=== PATIENT | female | born 1955 | race Caucasian/White ===

== ENCOUNTER → 2022-03-04 | Outpatient (CLI) | payer OTHER ==
[~2022-03-04] VITALS: Ht 160 cm; Wt 55.8 kg
[~2022-03-04] MED LIST: BEVESPI AEROS10.7 GM INH; FERROUS SULFAT325 M2 PO; FOSAMAX70 MG PO; FUROSEMIDE20 MG PO; GABAPENTIN400 MG PO; MELOXICAM15 MG PO; SINGULAIR10 MG PO; TRAMADOL HCL50 MG PO; WELLBUTRIN SR150 M1 PO
[2022-03-04 14:08] LABS: HEMOGLOBIN 14.3 gm/dl (12.3-15.3); RED BLOOD COUNT 4.53 M/UL (4.00-5.10); WHITE BLOOD COUNT 10.5 K/UL (4.5-11.0)
[2022-03-04 14:25] LABS: BUN/CREATININE RATIO 21 (0-10)
== END ==
LOC: OPSV2 12:30 → EDSTATUS 12:30 → OPSV2 12:47
PROVIDERS: Orthopaedic Surgery
DX: Z01.818 Encounter for other preprocedural examination (principal); M16.0 Bilateral primary osteoarthritis of hip
CPT/HCPCS: 36415; 71046; 80048; 85027; 93005

== ENCOUNTER → 2022-03-16 | Outpatient (CLI) | payer MEDICARE ==
[~2022-03-16] MED LIST changes: +BIOTIN PO; +ELIQUIS2.5 MG PO; +ROXICODONE5 MG PO
[2022-03-16 16:29] LABS: BUN/CREATININE RATIO 17 (0-10)
== END ==
LOC: LAB 14:57
PROVIDERS: Orthopaedic Surgery
DX: Z01.812 Encounter for preprocedural laboratory examination (principal)
CPT/HCPCS: 36415; 80048; 86850; 86900; 86901

== ENCOUNTER → 2022-03-17 | Day surgery (SDC) | payer MEDICARE ==
[~2022-03-17] VITALS: Ht 160 cm; Wt 55.8 kg
== END | disposition home or self-care (01) ==
LOC: OR 05:06
PROVIDERS: Orthopaedic Surgery
PROC: 0SR903A Replacement of Right Hip Joint with Ceramic Synthetic Substitute, Uncemented, Open Approach (ICD-10-PCS; principal; 2022-03-17 07:30)
DX: M16.0 Bilateral primary osteoarthritis of hip (principal); J44.9 Chronic obstructive pulmonary disease, unspecified; M81.0 Age-related osteoporosis without current pathological fracture; G89.29 Other chronic pain; Z79.899 Other long term (current) drug therapy; Z87.891 Personal history of nicotine dependence; Z88.1 Allergy status to other antibiotic agents; Z88.5 Allergy status to narcotic agent; Z88.8 Allergy status to other drugs, medicaments and biological substances
CPT/HCPCS: 72170; 73502; 76000; 97116; 97161; 97166; 97535; C1776; J0171; J0690; J0735; J1100; J1170; J1885; J2001; J2274; J2370; J2405; J2704; J2710; J2795; J3010; J3370; J7050